=== PATIENT | female | born 1995 | race Caucasian/White ===

== ENCOUNTER 2018-07-16 19:50 | Emergency (ER) | payer OTHER ==
[~2018-07-16] VITALS: Ht 160 cm; Wt 98.9 kg
[2018-07-16] MEDS ORDERED: PROGESTERONE100 MG (20:10)
== END 2018-07-17 00:06 | disposition home or self-care (01) ==
LOC: ER 19:50
DX: O20.0 Threatened abortion (principal)

== ENCOUNTER 2018-08-05 15:31 | Emergency (ER) | payer OTHER ==
[~2018-08-05] VITALS: Ht 162.6 cm; Wt 79.4 kg
[~2018-08-05 15:31] MED LIST: PROGESTERONE100 MG
== END 2018-08-05 17:44 | disposition home or self-care (01) ==
LOC: ER 15:31
DX: O26.891 Other specified pregnancy related conditions, first trimester (principal); J32.8 Other chronic sinusitis; Z34.01 Encounter for supervision of normal first pregnancy, first trimester

== ENCOUNTER 2018-09-19 22:00 | Outpatient (CLI) | payer OTHER ==
[2018-09-19] MEDS ORDERED: PRENATAL FORMU1 EAC1 PO (23:31)
[2018-09-20] MEDS ORDERED: KEFLEX500 MG PO (14:17)
== END 2018-09-20 15:25 | disposition home or self-care (01) ==
LOC: OBS/DEL 22:00
DX: O60.02 Preterm labor without delivery, second trimester (principal); Z34.02 Encounter for supervision of normal first pregnancy, second trimester

== ENCOUNTER 2019-02-03 08:45 | Inpatient (IN) | payer OTHER ==
[~2019-02-03] VITALS: Ht 160 cm; Wt 110.7 kg
[~2019-02-03 08:45] MED LIST changes: +KEFLEX500 MG PO; +PRENATAL FORMU1 EAC1 PO
[2019-02-06] MEDS ORDERED: LABETALOL HCL200 MG PO (07:19)
[2019-02-06] MEDS ORDERED: PERCOCET 5-3251 EACH PO (07:19)
== END 2019-02-06 13:31 | DRG 786 ==
LOC: O/R 08:45 → OB/GYN 10:48 → LDR 10:48 → OB/GYN 16:19
PROVIDERS: ADMIT Specialist
PROC: 4A1HXCZ Monitoring of Products of Conception, Cardiac Rate, External Approach (ICD-10-PCS; 2019-02-03)
PROC: 10D00Z1 Extraction of Products of Conception, Low, Open Approach (ICD-10-PCS; principal; 2019-02-03 13:00)
DX: O33.8 Maternal care for disproportion of other origin (principal); O14.13 Severe pre-eclampsia, third trimester; Z3A.39 39 weeks gestation of pregnancy; Z37.0 Single live birth

== ENCOUNTER 2022-03-04 19:30 | Emergency (ER) | payer OTHER ==
[~2022-03-04] VITALS: Ht 167.6 cm; Wt 97.5 kg
[~2022-03-04 19:30] MED LIST changes: +LABETALOL HCL200 MG PO; +PERCOCET 5-3251 EACH PO
== END 2022-03-04 22:01 | disposition home or self-care (01) ==
LOC: ER 19:30
DX: O26.899 Other specified pregnancy related conditions, unspecified trimester (principal); Z3A.00 Weeks of gestation of pregnancy not specified; R42 Dizziness and giddiness; Z20.822 Contact with and (suspected) exposure to COVID-19